=== PATIENT | female | born 1990 | race Caucasian/White ===

== ENCOUNTER 2025-05-21 12:47 | Outpatient (AMB) | payer BC, SELFPAY ==
--- NOTE | 2025-05-21 12:57 | A.OFFPC_ITS ---
Vital Signs 05/21/25 12:58 Height 5 ft 5.75 in Weight 174 lb 6 oz BMI 28.4 BP 120/66 Blood Pressure Location Lt brachial Position Sitting Pulse 90 Pulse Source Pulse Oximeter Temp 97.3 F Temp Source Temporal Artery Scan Pulse Oximetry (%) 99 Oxygen Delivery Method Room Air Intake Visit Reasons: establish care Intake Note: Patient is a new patient here to establish care for Endometriosis, Cardiac issues. Transferring care from unknown. Medical records have not been requested and not received. Tape Recorder Mechanic Required: Yes Tape Recorder Mechanic Language: [place] Tape Recorder Mechanic Name: ID: [id number] Information Interpreted: non-clinical & clinical Skiver Welt End: Not Required per policy Accompanied by: Self / Same As Patient Allergies No Known Allergies Allergy (Verified 05/21/25 13:05) Medication List - Last Reconciled 05/21/25 by Priya Cheek MD norethindrone-ethin estradiol 1-35 mg-mcg (Alyacen) 1 tab PO DAILY Tobacco use date assessed: 05/21/25 Dental Screening Dental Screen Date: 05/21/25 Did you have a dental visit in the last 12 months?: Yes Did you have a dental problem in the last 6 months where you did not have access to dental care?: No Was dental information given to patient?: Patient has dentist HPI HPI Comments History of Present Illness Details The patient is a 34-year-old female presenting to [facility]. she has complaints of palpitations and a history of endometriosis. She reports intermittent palpitations for the past four years, described as her heartbeat stopping for a couple of seconds followed by a rapid heartbeat. These episodes occur approximately twice a month and are sometimes associated with consuming a lot of sweets. She denies associated dizziness or chest pain but does feel a need to catch her breath during the episodes. Denies history of syncope. The patient reports that she was informed of a potential heart issue during her in [facility], where an ultrasound reportedly showed a problem, but she did not receive follow-up treatment. She denies a history of strep throat. The patient has a known history of endometriosis and takes OCP pills. She has experienced episodes of feeling lightheaded due to severe pain from her endometriosis. Past medical history is notable for pulmonary tuberculosis at age 12, for which she reportedly completed a course of treatment. She has no history of surgeries. Family history is significant for her mother, who was diagnosed with skin cancer at age 62 and is now in remission, and her father, who underwent heart bypass surgery at age 63. Her grandfather had lung cancer. There is no family history of thyroid disease. Socially, the patient lives with her and three children. She denies any use of tobacco, alcohol, or recreational drugs. [facility] Surgical History (Updated 05/21/25 @ 13:07 by KIKA Douglas) History of wisdom tooth extraction History of tooth extraction Social History (Updated 05/21/25 @ 12:57 by KIKA Douglas) Housing: Apartment Alcohol intake: never Patient Tobacco Use Status: Never used Tobacco e-Cigarette/Vaping Use: Never Used Second Hand Smoke Exposure: No service: No Current occupational status: unemployed Cognitive needs: No Hearing needs: No Vision needs: No Questionnaire PHQ-9 Over the last 2 weeks, how often have you been bothered by any of the following problems? 1. Little interest or pleasure in doing things: several days 2. Feeling down, depressed, or hopeless: several days 3. Trouble falling or staying asleep, or sleeping too much: several days 4. Feeling tired or having little energy: several days 5. Poor appetite or overeating: several days 6. Feeling bad about yourself - or that you are a failure or have let yourself or your family down: several days 7. Trouble concentrating on things, such as reading the newspaper or watching television: several days 8. Moving or speaking so slowly that other people could have noticed. Or the opposite - being so fidgety or restless that you have been moving around a lot more than usual: not at all 9. Thoughts that you would be better off or of hurting yourself in some way: not at all Total score: 7 Depression Screening Interpretation: Positive Depression Screening Done: Yes Source: Developed by Drs. Sulaiman Malhotra, Heather Ojeda, Ramiro Michelle and colleagues, with an educational flo from [employer]. Thrive Questionnaire Date Thrive assessed: 05/20/25 I am a: Patient What is your living situation today?: I have a steady place to live Within the past 12 months, did the food you bought not last and you didn't have the money to get more?: Never true Within the past 12 months, did you worry whether your food would run out before you got money to buy more?: Never true Do you have trouble paying for medicines?: No Do you have trouble getting transportation to medical appointments?: No Do you have trouble paying your heating and electricity bill?: No Do you have trouble taking care of your child, family member or friend?: No Do you have trouble with day-to-day activities such as bathing, preparing meals, shopping, managing finances, etc.?: No Are you currently unemployed and looking for a job?: I choose not to answer this question Are you interested in more education?: Yes Please select the resources that you would like help with: None Currently or been in a relationship where the following occur: No concerns reported THRIVE Score: 0 AUDIT C Alcohol Use Questionnaire (AUDIT-C) 1. How often do you have a drink containing alcohol?: Never 3. How often do you have six or more drinks on one occasion?: Never Total Score: 0 SUMIT-7 AMB Questionnaire SUMIT-7 Date SUMIT - 7 assessed: 05/21/25 Feeling nervous, anxious, or on edge: 0 = Not at all Not being able to stop or control worryin = Not at all Worrying too much about different things: 0 = Not at all Trouble relaxin = Not at all Being so restless that it is hard to sit still: 0 = Not at all Becoming easily annoyed or irritable: 0 = Not at all Feeling afraid as if something awful might happen: 0 = Not at all Total USMIT-7 score (0-4 normal; 5-9 mild; 10-14 moderate; 15-21 severe): 0 Source: Developed by Drs. Sulaiman Malhotra, Heather Ojeda, Ramiro Michelle and colleagues, with an educational flo from [employer]. Physical exam (Primary Care) Vital Signs: Last Vital Signs Temp 97.3 F 05/21/25 12:58 Pulse 90 05/21/25 12:58 BP 120/66 05/21/25 12:58 Pulse Ox 99 05/21/25 12:58 Oxygen Delivery Method Room Air 05/21/25 12:58 General: Well-appearing, alert, oriented ?3, in no acute distress. Cardiovascular: RRR, S1-S2 appreciated, no murmurs, rubs or gallops. Respiratory: Lungs clear to auscultation bilaterally, no wheezes, rales or rhonchi. Abdomen: Soft, nontender, nondistended. Normoactive bowel sounds. BMI result Body Mass Index 28.4 Tobacco/Smoking Status: Tobacco use Status Tobacco use date assessed 05/21/25 05/21/25 13:03 Patient Tobacco Use Status Never used Tobacco 05/21/25 13:03 e-Cigarette/Vaping Use Never Used 05/21/25 13:03 PHQ-9: PHQ-9 Score PHQ-9: Total score 7 05/21/25 13:46 Depression Screening Interpretation: Positive Thrive Assessment: Date of Thrive Assessment Date Thrive assessed 05/20/25 05/21/25 13:03 Currently or been in a relationship where the following occur: No concerns reported Office Procedures EKG 88291-[id number], Complete Coding Level of Care Code New Pt Level 4 (49427) Diagnoses Establishing care with new doctor, encounter for Z76.89 Palpitations R00.2 Endometriosis N80.9 CPT Codes EKG - CPT: 38118-Fhnitxzuqqpwcbzil, Complete ([id number]) Assessment & Plan Assessment & Plan (1) Establishing care with new doctor, encounter for: Code(s): Z76.89 - Persons encountering health services in other specified circumstances Plan: Patient is a 34-year-old female with reportedly history of endometriosis presenting to establish care. Patient reports she has not seen physician in 4 years. (2) Palpitations: Code(s): R00.2 - Palpitations Category: Medical Plan: Patient reports history of intermittent palpitations for the past 4 years, associated with a feel that she needs to catch her breath, but no associated chest pain, dizziness or syncope. She reports a history of abnormal heart ultrasound back in [facility] which she can not recall what was the problem. She is not on any cardiac medications. Patient has family history CAD in the father in his 60s. EKG done in office today shows normal sinus rhythm, no noted arrhythmias or ischemic changes. Physical exam is unremarkable with regular rate and rhythm, no murmurs appreciated on auscultation. will obtain basic blood work to check electrolytes, magnesium and thyroid. Referral to cardiology provided for further workup which may include a Holter monitor echocardiogram. (3) Endometriosis: Code(s): N80.9 - Endometriosis, unspecified Category: Medical Plan: Patient reports a history of endometriosis for which she is on OCPs, and follows with OBGYN in [place]. Could not find notes or documents in the chart. She does not recall name of provider. Orders: Orders Complete Blood Count Auto Diff Today R00.2 - Palpitations Hemoglobin A1c Today E66.3 - Overweight Comprehensive Met. Panel Today R00.2 - Palpitations TSH reflex Free T4 Today R00.2 - Palpitations Lipid Panel with Reflex Today Z00.00 - Encounter for general adult medical examination without abnormal findings AMB EKG-In Office Today R00.2 - Palpitations Magnesium Today R00.2 - Palpitations Referrals Cardiology Referral R00.2 - Palpitations
[2025-05-21 12:58] VITALS: BP 120/66; PULSE 90; TEMP 36.3; O2SAT 99; BMI 28.4
== END 2025-05-21 14:25 | disposition home or self-care (01) ==
LOC: HO.HMCH 12:47
PROVIDERS: PCP Student in an Organized Health Care Education/Training Program; Visit Provider Student in an Organized Health Care Education/Training Program
DX: Z76.89 Persons encountering health services in other specified circumstances (principal); R00.2 Palpitations; N80.9 Endometriosis, unspecified

== ENCOUNTER → 2025-05-21 12:47 | Outpatient (BNVA) | payer BC, SELFPAY | PROVIDERS: PCP Student in an Organized Health Care Education/Training Program; Visit Provider Student in an Organized Health Care Education/Training Program | DX: Z76.89 Persons encountering health services in other specified circumstances (principal); R00.2 Palpitations; N80.9 Endometriosis, unspecified | CPT/HCPCS: 93005; 96127 ==

== ENCOUNTER 2025-06-02 08:26 | Outpatient (REF) | payer BC, SELFPAY ==
--- OUTSIDE RECORDS SUMMARY | 2025-06-02 08:31 | XMS_ITS | Encounter Summary ---
Author Organization [facility] Address [id number] [place] [phone] Care Team Providers Care Hole Digger Name Role Phone Physician, Pcp Unknown Primary Care Provider Chanelle vailable Encounter Details Date Type Department Care Team (Latest Contact Info) Description 08/25/2024 Lab Requisition [facility] - Main Lab [address] [facility] [place] [address] Tashi Fatima MD [address] [phone] Encounter for gynecological examination (general) (routine) without abnormal findings Social History Tobacco Use Types Packs/Day Years Used Date Smoking Tobacco: Never Assessed Comments Unknown Sex and Gender Information Value Date Recorded Sex Assigned at Not on file Legal Sex Female 9:08 PM EST Gender Identity Not on file Sexual Orientation Not on file documented as of this encounter Plan of Treatment Not on file documented as of this encounter Procedures Procedure Name Priority Date/Time Associated Diagnosis Comments PAP SMEAR Routine 08/24/2024 12:00 AM EST Encounter for gynecological examination (general) (routine) without abnormal findings documented in this encounter Results * Pap smear (08/24/2024 12:00 AM EST) Interpretation Negative for intraepithelial lesion or malignancy 08/28/2024 4:14 PM EST [facility] General Categorization Negative 08/28/2024 4:14 PM EST [facility] LMP 08/06/2024 08/28/2024 4:14 PM EST [facility] Specimen Adequacy Satisfactory for evaluation, endocervical/tucker sformation zone component present 08/28/2024 4:14 PM EST [facility] Pap Methodology Liquid Based Pap Test 08/28/2024 4:14 PM EST [facility] Disclaimer The Pap test is a screening test which carries an inherent false negative rate. These test results should be correlated with the patient's clinical findings and history. This Pap test was processed using an automated screening system. Technical cytopathology services provided by [facility], at [address] [place] [address] (CLIA # [id number]/Mark Olivares MD, Taper Operator.) 08/28/2024 4:14 PM [facility] Console Pap Interpretation Reported 08/28/2024 4:14 PM [facility] Brushing/Spatula Cervix uteri structure / Unknown 08/24/2024 08/25/2024 8:20 AM EST us Tashi Fatima MD LAB CYTOLOGY ORDERABLES Final Result [facility] [address] [place] [address], documented in this encounter Visit Diagnoses Diagnosis Encounter for gynecological examination (general) (routine) without abnormal findings documented in this encounter Care Teams Hole Digger Relationship Specialty Start Date End Date Physician, Pcp Unknown PCP - General 09/01/24 documented as of this encounter
--- OUTSIDE RECORDS SUMMARY | 2025-06-02 08:31 | XMS_ITS | Clinical Summary ---
Author Organization [address] Address [address] [place] [phone] Phone Care Team Providers Care Information Delivery Analyst Name Role Phone Physician, Pcp Unknown Primary Care Provider Chanelle vailable Social History Tobacco Use Types Packs/Day Years Used Date Smoking Tobacco: Never Assessed Comments Unknown Sex and Gender Information Value Date Recorded Sex Assigned at Not on file Legal Sex Female 9:08 PM EST Gender Identity Not on file Sexual Orientation Not on file Last Filed Vital Signs Vital Sign Reading Time Taken Comments Blood Pressure - - Pulse - - Temperature - - Respiratory Rate - - Oxygen Saturation - - Inhaled Oxygen Concentration - - Weight 74.8 kg (165 lb) 12/02/2023 3:15 PM EDT Height 168 cm (5' 6.14 ) 12/02/2023 3:15 PM EDT Body Mass Index 26.52 12/02/2023 3:15 PM EDT Plan of Treatment Health Maintenance Due Date Last Done Comments DTaP,Tdap,and Td Vaccines (1 - Tdap) 2007 Hepatitis B Vaccines (1 of 3 - 19+ 3-dose series) 2007 HPV Vaccines (1 - 3-dose SCD M series) 2015 HIV Screening 07/30/2023 Hepatitis C Screening 07/30/2023 Social Influencers of Health Screening 07/30/2023 Depression Screening 07/05/2024 COVID-19 Vaccine ( - 2024-2 6 season) 2025 Influenza Vaccine (#1) 2025 Cervical Cancer Screening: P ap Smear 08/24/2027 08/24/2024 RSV Immunization Adult Patie nts (1 - 1-dose 75+ series) 2063 HIB Vaccines Aged Out No longer eligi ble based on patient's age to complete this topic Hepatitis A Vaccines Aged Out No long er eligible based on patient's age to complete this topic IPV Vaccines Aged Out No longer eligi ble based on patient's age to complete this topic MMR Vaccines Aged Out No longer eligi ble based on patient's age to complete this topic Meningococcal ACWY Vaccine Aged Out N o longer eligible based on patient's age to complete this topic Meningococcal B Vaccine Aged Out No l onger eligible based on patient's age to complete this topic Pneumococcal Vaccine: Pediat rics (0 to 5 Years) and At-Risk Patients (6 to 49 Years) Aged Out No longer eligi ble based on patient's age to complete this topic RSV Immunization Patients Un felix 20 months Aged Out No longer eligible b ased on patient's age to complete this topic Varicella Vaccines Aged Out No longer eligible based on patient's age to complete this topic Procedures Procedure Name Priority Date/Time Associated Diagnosis Comments PAP SMEAR Routine 08/24/2024 12:00 AM EST Encounter for gynecological examination (general) (routine) without abnormal findings from Last 3 Months or Most Recently Relevant to Health Maintenance Results * Pap smear (08/24/2024 12:00 AM EST) Interpretation Negative for intraepithelial lesion or malignancy 08/28/2024 4:14 PM [facility] General Categorization Negative 08/28/2024 4:14 PM [facility] LMP 08/06/2024 08/28/2024 4:14 PM [facility] Specimen Adequacy Satisfactory for evaluation, endocervical/tucker sformation zone component present 08/28/2024 4:14 PM [facility] Pap Methodology Liquid Based Pap Test 08/28/2024 4:14 PM [facility] Disclaimer The Pap test is a screening test which carries an inherent false negative rate. These test results should be correlated with the patient's clinical findings and history. This Pap test was processed using an automated screening system. Technical cytopathology services provided by [facility], at [address] [place] [address] (CLIA # [id number]/Mark Olivares MD, Communications Tower Technician.) 08/28/2024 4:14 PM EST [email or web address] Console Pap Interpretation Reported 08/28/2024 4:14 PM EST [email or web address] Brushing/Spatula Cervix uteri structure / Unknown 08/24/2024 08/25/2024 8:20 AM EST us Tashi Fatima MD LAB CYTOLOGY ORDERABLES Final Result [email or web address] [address] [place] [address], from Last 3 Months or Most Recently Relevant to Health Maintenance Insurance MEDICAID - [place] Care Teams Information Delivery Analyst Relationship Specialty Start Date End Date Physician, Pcp Unknown PCP - General 09/01/24
[2025-06-02 08:55] LABS: MANUAL DIFF FLAG NO
[2025-06-02 09:58] LABS: Hematocrit 39.8 % (37.0-47.0); Hemoglobin 13.3 g/dl (12.0-16.0); Imm Gran Abs Auto 0.03 X10*3/uL (0.00-0.03); Imm Gran Pct Auto 0.4 % (0.0-0.4); Lymphocytes Absolute Auto 2.9 X10*3/uL (1.2-4.9); Mean Corpuscular HGB Conc 33.4 g/dl (31.0-35.0); Mean Corpuscular Hemoglobin 28.5 pg (27.0-33.0); Mean Corpuscular Volume 85.4 fL (80.0-98.0); NRBC Abs Auto 0.000 X10*3/uL (0.0-0.012); NRBC Pct Auto 0.0 /100WBC (0.0-0.2); Platelet Count 329 X10*3/uL (160-400); Red Blood Count 4.66 X10*6/uL (4.20-5.50); White Blood Count 7.8 X10*3/uL (4.8-10.8)
[2025-06-02 10:44] LABS: Alanine Aminotransferase 29 U/L (0-31); Albumin Level 4.5 g/dL (3.5-5.0); Alkaline Phosphatase 66 U/L (39-117); Anion Gap 12 (12-20); Aspartate Amino Transferase 22 U/L (5-31); Blood Urea Nitrogen 10 mg/dL (9-16); Calcium 9.2 mg/dL (8.4-10.2); Carbon Dioxide 22 mmol/L (22-29); Chloride 109 mmol/L (96-108); Cholesterol 177 mg/dL (<200); Estimated Glomerular Filt Rate > 60; HDL Cholesterol 41 mg/dL (>40); Magnesium 2.1 mg/dL (1.6-2.6); Potassium 4.1 mmol/L (3.3-5.1); Sodium 139 mmol/L (135-145); Total Protein 8.0 g/dL (6.5-8.0); Triglycerides 129 mg/dL (<150)
[2025-06-02 11:49] LABS: Reflex LDLD? No
== END 2025-06-02 08:27 | disposition home or self-care (01) ==
LOC: HO.LAB 08:26
PROVIDERS: PCP Student in an Organized Health Care Education/Training Program; Visit Provider Student in an Organized Health Care Education/Training Program
DX: Z00.00 Encounter for general adult medical examination without abnormal findings (principal); E66.3 Overweight; R00.2 Palpitations; Z13.1 Encounter for screening for diabetes mellitus
CPT/HCPCS: 36415; 80053; 80061; 83036; 83735; 84443; 85025

== ENCOUNTER → 2025-06-27 09:46 | Outpatient (REF) | payer BC, SELFPAY ==
--- NOTE | 2025-06-27 09:51 | CA_ITS ---
Transthoracic Echocardiogram Patient (Last, First, Middle): Nereyda Edwards, Gender: F Date of : 1990 Age: 34 Procedure Date: 06/27/2025 Procedure Type: Transthoracic Echocardiogram Location: OP Height: 167.64 cm Weight: 78.93 kg BSA: 1.89 m2 Heart Rate: 76 bpm BP: 120 / 66 mmHg Automated Weaver: TO Referring MD: Priya Cheek MD Auxiliary Plant Operator: Rodolfo Shabazz MD Symptoms: R00.2 - Palpitations Study Quality: Adequate w contrast ECG Rhythm: Sinus Conclusions: - Essentially normal study Findings Procedure Information Contrast agent, definity, is being given per protocol without apparent complications. Left Ventricle Normal left ventricular size, thickness, and systolic function. The visually estimated ejection fraction is between 55-60%. Diastolic function is normal for age. Right Ventricle Normal right ventricular cavity size and systolic function. Atria Both atria are normal in size. Interatrial shunt cannot be excluded. Aortic Valve Normal aortic valve structure and function. There is no aortic valve stenosis. There is no aortic valve regurgitation. Mitral Valve Normal mitral valve structure and function. There is trace mitral valve regurgitation. There is no mitral valve stenosis. Pulmonic Valve The pulmonic valve is likely normal. Tricuspid Valve Normal tricuspid valve structure. There is trace tricuspid valve regurgitation. The right ventricular systolic pressure is normal. The right ventricular systolic pressure is 18 mmHg. Normal right atrial pressure. There is no evidence of pulmonary hypertension. Great Vessels All visible segments of the aorta are normal in size. The pulmonary artery was not well visualized. Venous The inferior vena cava is normal in size and collapses greater than 50% with inspiration. Pericardium/Pleural There is no evidence of pericardial effusion. Prior Study Comparison No prior study available for comparison. Measurements 2D Linear Measurements IVSd: 0.64 0.6-0.9/0.6-1.0 cm LVIDd: 5.24 3.9-5.3/4.2-5.9 cm LVIDd Index: 2.77 2.4-3.2/2.2-3.1 cm/m2 LVIDs: 3.35 2.0-3.6 cm LVPWd: 0.71 0.7-1.1 cm LA Diam: 2.90 2.7-3.8/3.0-4.0 cm LAIDs Index: 1.53 1.5-2.3 cm/m2 LV Mass: 147.73 67-162/88-224 g LV Mass Index: 78.17 43-95/49-115 g/m2 LVOT Diam: 2.10 3.0+(-)1.3 cm 2D Systolic Function EF 4C: 54.10 >55% EF 2C: 58.40 >55% EF BiP: 56.60 >55% Mitral Valve MV Pk E: 0.55 MV PK A: 0.42 MV Decel Time: 218.00 E/A: 1.30 E'Lateral: 10.10 E'Medial: 8.49 E/E' Med: 6.50 E/E' Lat: 5.50 PHT: 64.00 MVA PHT: 3.44 Decel Dickens: 2.53 Aortic Valve AoV Pk Jesse: 1.28 AoV Mn Jesse: 0.92 AoV VTI: 0.26 AoV Pk Grad: 7.00 Aov Mn Grad: 4.00 MARLON Cont.VTI: 2.36 LVOT LVOT Pk Jesse: 0.96 LVOT Mn Jesse: 0.68 LVOT VTI: 0.18 LVOT Pk Grad: 4.00 LVOT Mn Grad: 2.00 LVOT Diam: 2.10 LVOT Area: 3.46 Diastolic Function MV Pk E: 0.55 MV Pk A: 0.42 E/A: 1.30 E'Medial: 8.49 E/E' Med: 6.50 E' Laterial: 10.10 E/E' Lat: 5.50 Right Ventricle TAPSE (mm): 18.30 TVS' Jesse: 10.10 Tricuspid Valve TR Pk Jesse: 1.94 TR Pk Grad: 15.00 RA Press: 3.00 RVSP: 18.00 Great Vessels Aorta Sinus of Valsalva: 2.76 2.0-3.5 cm Ao Asc: 2.70 2.1-3.4 cm Updated in Other Vendor System with Status of Final Rodolfo Shabazz MD electronically signed on 06/28/2025 11:19:04 AM with status of Final
--- OUTSIDE RECORDS SUMMARY | 2025-06-27 09:53 | XMS_ITS | Clinical Summary ---
Author Organization [address] Address [address] [place] [phone] Phone Care Team Providers Care Cornice Maker Name Role Phone Physician, Pcp Unknown Primary [...] lesion or malignancy 08/28/2024 4:14 PM EST [facility] at 1614 EST General Categorization Negative 08/28/2024 4:14 PM [facility] LMP 08/06/2024 08/28/2024 4:14 PM [facility] Specimen Adequacy Satisfactory for evaluation, endocervical/tucker sformation zone component present 08/28/2024 4:14 PM [facility] Pap Methodology Liquid Based Pap Test 08/28/2024 4:14 PM [facility] Disclaimer The Pap test is a screening test which carries an inherent false negative rate. These test results should be correlated with the patient's clinical findings and history. This Pap test was processed using an automated screening system. Technical cytopathology services provided by [facility], at [address] [place] [address] (CLIA # [id number]/Mark Olivares MD, Fur Floor Worker.) 08/28/2024 4:14 PM EST [facility] Console Pap Interpretation Reported 08/28/2024 4:14 PM EST [facility] Brushing/Spatula Cervix uteri structure / Unknown 08/24/2024 08/25/2024 8:20 AM EST us Tashi Fatima MD LAB CYTOLOGY ORDERABLES Final Result [facility] [address] [place] [address], from Last 3 Months or Most Recently Relevant to Health Maintenance Insurance MEDICAID - [place] Care Teams Cornice Maker Relationship Specialty Start Date End Date Physician, Pcp Unknown PCP - General 09/01/24
--- OUTSIDE RECORDS SUMMARY | 2025-06-27 09:53 | XMS_ITS | Encounter Summary ---
Author Organization [facility] Address [id number] [place] [id number] Care Team Providers Care Automatic Pad Making Machine Operator Name Role Phone Physician, Pcp Unknown Primary Care Provider Chanelle vailable Encounter Details Date Type Department Care Team (Latest Contact Info) Description 08/25/2024 Lab Requisition [facility] - Main Lab [address] [facility] [place] [address] Tashi Fatima MD [address] [phone] Encounter for gynecological examination (general) (routine) without [...] lesion or malignancy 08/28/2024 4:14 PM EST [facility] at 1614 EST General Categorization Negative 08/28/2024 4:14 PM EST [facility] LMP 08/06/2024 08/28/2024 4:14 PM EST [facility] Specimen Adequacy Satisfactory for evaluation, endocervical/tucker sformation zone component present 08/28/2024 4:14 PM EST [facility] Pap Methodology Liquid Based Pap Test 08/28/2024 4:14 PM EST [facility] Disclaimer The Pap test is a screening test which carries an inherent false negative rate. These test results should be correlated with the patient's clinical findings and history. This Pap test was processed using an automated screening system. Technical cytopathology services provided by [facility], at [address] [place] [address] (CLIA # [id number]/Mark Olivares MD, Marketing Communications Specialist.) 08/28/2024 4:14 PM [facility] Console Pap Interpretation Reported 08/28/2024 4:14 PM [facility] Brushing/Spatula Cervix uteri structure / Unknown 08/24/2024 08/25/2024 8:20 AM EST us Tashi Fatima MD LAB CYTOLOGY ORDERABLES Final Result [facility] [address] [place] [address], documented in this encounter Visit Diagnoses Diagnosis Encounter for gynecological examination (general) (routine) without abnormal findings documented in this encounter Care Teams Automatic Pad Making Machine Operator Relationship Specialty Start Date End Date Physician, Pcp Unknown PCP - General 09/01/24 documented as of this encounter
== END ==
LOC: HO.CARD 09:46
PROVIDERS: PCP Student in an Organized Health Care Education/Training Program; Visit Provider Student in an Organized Health Care Education/Training Program
DX: R00.2 Palpitations (principal)
CPT/HCPCS: 93242; 93306; Q9957

== ENCOUNTER → 2025-06-27 09:51 | Outpatient (BNV) | payer BC, SELFPAY | PROVIDERS: PCP Student in an Organized Health Care Education/Training Program; Visit Provider Internal Medicine Cardiovascular Disease | DX: R00.2 Palpitations (principal) | CPT/HCPCS: 93306 ==